=== PATIENT | female | born 1985 | race Caucasian/White ===

== ENCOUNTER → 2018-05-27 | Emergency (ER) | payer MEDICAID ==
[~2018-05-27] VITALS: Ht 167.6 cm; Wt 95.7 kg
[~2018-05-27] MED LIST: CIPR10DR RIGHT EAR
[2018-05-27 12:18] VITALS: BP 143/91
== END | disposition home or self-care (01) ==
LOC: ER 11:34
DX: H60.8X1 Other otitis externa, right ear (principal); G43.909 Migraine, unspecified, not intractable, without status migrainosus; Z88.0 Allergy status to penicillin; Z88.5 Allergy status to narcotic agent
CPT/HCPCS: 99283